=== PATIENT | female | born 1935 | race Caucasian/White ===

== ENCOUNTER 2016-07-27 13:47 | Observation (INO) | payer MEDICARE, MEDICAID ==
[2016-07-27] VITALS (10 sets, daily range): BP systolic 88–148; BP diastolic 53–77; PULSE 58–75; RESP 14–28; O2SAT 86–94
[~2016-07-27] VITALS: Ht 154.9 cm; Wt 53.1 kg
[2016-07-27] MEDS ORDERED: 0.9% Sodium Chloride 1,000 ML ONE (14:25)
--- NOTE | 2016-07-27 14:25 | ED.REPORT ---
HPI-General Illness Date of Service Jul 27, 2016 ED Provider: Bradford Rankin DO Pt s an 80 year old female with a history of COPD, HTN and hyperlipidemia who presents to the ED with complaints of weakness that started 4 days ago. Pt reports body aches, decreased appetite, cough, wheezing, dysuria, increased urgency, diarrhea, and shortness of breath. She denies any nausea, vomiting, chest pain, or any fevers. Pt reports smoking on a daily basis, but denies any history of CHF or stroke. She reports that she has an albuterol inhaler, prescribed for her by her PCP, which she used today without any alleviation of her symptoms. Nursing Notes Stated Complaint: SOB,COUGH,BODY ACHES,NECK PAIN,LETHARGIC Chief Complaint: General Complaint Nursing Notes Reviewed: Yes Allergies: Coded Allergies: celecoxib (Verified Allergy, Intermediate, "my blood startes boiling", 07/27) ibuprofen (Verified Allergy, Intermediate, "my blood starts boiling", ) Scheduled Atorvastatin (Lipitor) 20 Mg Tablet 20 MG PO HS Calcitriol (Rocaltrol) 0.25 Mcg Capsule 0.25 MCG PO DAILY Cholecalciferol (Vitamin D3) (Vitamin D3) 2,000 Unit Tablet 2,000 UNIT PO DAILY Furosemide (Furosemide) 40 Mg Tablet 40 MG PO BID Glucosamine (Glucosamine) 500 Mg Tablet 500 MG PO BID Metoprolol Tartrate (Metoprolol Tartrate) 25 Mg Tablet 25 MG PO BID Potassium Citrate ER (Potassium Citrate ER) 10 Meq Tablet 10 MEQ PO DAILY TAKE WITH FOOD Scheduled PRN Albuterol HFA (Proair HFA) 8.5 Gm Hfa.aer.ad 2 PUFFS INHALATION Q4H PRN PRN For Shortness of Breath Calcium Carbonate (Tums) 500 Mg Tab.chew 500 MG PO PRN PRN PRN ACID Fluticasone/Salmeterol (Advair Hfa 230-21 Mcg Inhaler) 12 Gm Hfa.aer.ad 2 PUFF IH BID PRN PRN For Shortness of Breath Polyvinyl Alcohol/Povidone/Pf (Refresh Classic Eye Drops) 1 Each Droperette 1 EACH OP prn PRN PRN dry eyes Tramadol (Tramadol) 50 Mg Tablet 50 MG PO BID PRN PRN For Pain General Time Seen by MD: 14:16 Chief Complaint Breathing problem, Multip medical complaints Hx Obtained From: Patient, Daughter Arrived By: Walk-in Sudden in Onset?: Yes Onset Occurred: 4 days ago Symptom Duration: Since onset Severity: Current: No pain currently Severity: Maximum: No pain Similar Sx Previous: Yes Past Medical History Past Medical History Reports: COPD, Hyperlipidemia, Hypertension Smoking History Current Every Day Smoker Ambulatory Status Independent Review of Systems Full Review of Systems Constitutional: Reports: Weakness - generalized, Denies: Chills, Fever, Malaise Respiratory: Reports: Non-productive cough, Shortness of breath, Wheezing Cardiovascular: Denies: Chest pain, Syncope GI: Reports: Diarrhea, Denies: Abdominal pain, Constipation, Nausea, Vomiting Female: Reports: Dysuria, Urinary frequency, Urinary urgency, Denies: Flank pain Musculoskeletal: Denies: Extremity pain, Neck pain Skin: Denies Diaphoresis Neurologic: Reports: Weakness, Denies: Change LOC, Dizziness, Headache, Syncope Complete sys rev & neg: except as marked. Physical Exam Vital Signs Vital Signs Date Time Temp Pulse Resp B/P Pulse Ox O2 Delivery O2 Flow Rate FiO2 07/27/16 15:48 73 28 148/74 92 07/27/16 14:54 58 14 94 Nasal Cannula 2 07/27/16 14:47 59 14 129/67 93 Nasal Cannula 2 07/27/16 14:23 75 18 119/60 94 Nasal Cannula 2 07/27/16 14:08 61 16 119/68 91 Room Air 07/27/16 13:53 36.2 64 20 88/53 90 Room Air Initial VS: Reviewed Head / Eyes: Atraumatic, Normocephalic, PERRL Neck: Supple, Non-tender, Full range of motion Cardiovascular: Regular rate & rhythm, Heart sounds normal, Intact distal pulses Abdomen / GI: Soft, Non-tender, No guarding, No rebound, No distention Skin: Warm, Dry, No cyanosis Neurologic: Alert, Oriented, Nonfocal Psychiatric: Mood/affect normal, Behavior normal, Normal thought content General/Constitutional: Awake, Alert, Cooperative Appearance / Presentation: Positive: Cachectic, Uncomfortable Hypotensive ENT: Atraumatic, Airway patent Mouth: Positive: Mucous membranes dry Respiratory / Chest: No respiratory distress Diffuse, coarse expiratory wheezes Ankle / Foot: Full range of motion, No deformity, Neurologic intact, Vascular intact 1/2 cm skin ulceration at the medial base of the right fifth toe Interpretation & Diagnostics Lab Results Interpretation Result Diagram: 07/27/16 1215 07/27/16 1215 Test 07/27/16 12:15 07/27/16 12:45 White Blood Count 6.3th/mm3 (3.8-10.1) Red Blood Count 4.34mil/mm3 (3.90-5.20) Hemoglobin 13.1g/dL (12.0-15.6) Hematocrit 40.2% (35.0-46.0) Mean Corpuscular Volume 92.6fL (81-100) Mean Corpuscular Hemoglobin 30.2pg (27.0-35.0) Mean Corpuscular Hemoglobin Concent 32.6% (32.0-37.0) Red Cell Distribution Width 14.2% (12.3-15.4) Platelet Count 175bil/L (150-400) Neutrophils (%) (Auto) 69.3% (40-74) Lymphocytes (%) (Auto) 16.1% (14-46) Monocytes (%) (Auto) 13.3% (4-12) Eosinophils (%) (Auto) 0.5% (0-5) Basophils (%) (Auto) 0.5% (0-3) Sodium Level 139mEq/L (134-144) Potassium Level 4.1mEq/L (3.5-5.2) Chloride Level 95mEq/L (97-108) Carbon Dioxide Level 29mmol/L (18-29) Blood Urea Nitrogen 62mg/dL (8-27) Creatinine 2.33mg/dL (0.57-1.00) Estimat Glomerular Filtration Rate 29mL/min (>59) Glucose Level 107mg/dL (60-99) Calcium Level 9.2mg/dL (8.5-10.1) Total Bilirubin 0.3mg/dL (0.0-1.2) Aspartate Amino Transf (AST/SGOT) 23U/L (0-50) Alanine Aminotransferase (ALT/SGPT) 14U/L (0-32) Alkaline Phosphatase 49U/L (25-165) Troponin T 0.021ug/L (0.0-0.011) Pro-B-Type Natriuretic Peptide 980.5pg/mL (0-738) Total Protein 7.2g/dL (6.4-8.4) Albumin 3.7g/dL (3.4-5.0) Lactic Acid Level 1.2mmol/L (0.4-2.0) ECG Interpretation ECG Interpretation: SR - [address] depression, lateral leads Time: 15:35 Interpreted by: ED physician X-Ray Chest Interpretation Chest Xray Interpretation: IMPRESSION: 1. New 1.7 cm left upper lung nodule, worrisome for bronchogenic neoplasm versus metastasis. Consider confirmation with chest CT. 2. Several nonacute right rib fractures now present. Dictated by: Johnson Cota M.D. on 07/27/2016 at 15:18 Interpretation / Wet Read by: Interpret - Radiologist Re-Eval/Medical Decision Med Decision/Clinical Course Hypotension and hypoxia associated with influenza A will plan to admit. she is made aware of the incidental finding of a lung mass. Source of Hx: Old records Time of Eval: 16:26 Re-Evaluation/Progress Note: Pt is rechecked and informed of her labs and imaging results and the need to admit her at this time. She understands and agrees, all questions are addressed. Consultation : Referral / Consult Name: Nish Sahni MD Consulted With: Hospitalist Call Returned at: 16:46 Sports Intern: Will see patient, Agrees with plan, Accepts admit Counseled Regarding: Diagnosis, Lab results, Need for admission Discharge & Departure Primary Impression: Acute respiratory failure with hypoxia Additional Impressions: Influenza A COPD (chronic obstructive pulmonary disease) COPD type: unspecified COPD Qualified Code: J44.9 - Chronic obstructive pulmonary disease, unspecified Disposition: ADMITTED TO HOSPITAL Discharge Condition All VS Reviewed: Yes Condition: Stable Referrals: Gael Jordan MD (PCP) Krista Attestation Portions of this note were transcribed by Brooke Arevalo. I, Dr. Rankin personally performed the history, physical exam and medical decision-making; I reviewed and confirmed the accuracy of the information in the transcribed note. Signed by: Krista Daniels, 07/27/2016 [id number] copies to: Gael Jordan MD, Timothy S DO Jul 27, 2016 14:25 APPLE AREVALO Jul 27, 2016 14:44
[2016-07-27 14:29] LABS: BASOPHILS % (AUTO) 0.5 % (0-3); EOSINOPHILS % (AUTO) 0.5 % (0-5); MONOCYTES % (AUTO) 13.3 % (4-12); Mean Corpuscular Hemoglobin 30.2 pg (27.0-35.0); Mean Corpuscular Volume 92.6 fL (81-100); NEUTROPHILS % (AUTO) 69.3 % (40-74); Platelet Count 175 bil/L (150-400)
[2016-07-27] MEDS ORDERED: Albuterol 2.5 mg/3 mL Inhalation Solution NEB ONE (14:40)
[2016-07-27] MEDS ORDERED: 0.9% Sodium Chloride 500 ML IV ONE (14:40)
[2016-07-27] MEDS ORDERED: Albuterol-Ipratropium 3 mL Inhalation Solution NEB ONE (14:40)
[2016-07-27 14:55] LABS: TROPONIN T 0.021 ug/L (0.0-0.011)
--- NOTE | 2016-07-27 15:20 | DRSVH ---
PROCEDURE: X-RAY CHEST ONE VIEW, PORTABLE ([id number]) INDICATIONS: 80 year-old female with cough and weakness. TECHNIQUE: One view of the chest was acquired. COMPARISON: [facility], , CHEST 2VW, 07/26/2011, 12:02. FINDINGS: Surgical changes and devices: None. Lungs and pleura: No pleural effusions or pneumothorax. No acute airspace opacities. 1.7 cm left up per lung nodule is now apparent. Mediastinum: Mediastinal contours appear normal. Heart size is normal. There is aortic atheroscler osis. Bones and chest wall: No suspicious bony lesions. Several nonacute right rib fractures appear new s el[place] 2011. Overlying soft tissues appear unremarkable. IMPRESSION: 1. New 1.7 cm left upper lung nodule, worrisome for bronchogenic neoplasm versus metastasis. Consider confirmation with chest CT. 2. Several nonacute right rib fractures now present. Dictated by: Johnson Cota M.D. on 07/27/2016 at 15:18 Approved by: Johnson Cota M.D. on 07/27/2016 at 15:18
[2016-07-27] MEDS ORDERED: POTA10TA19 PO (15:54)
[2016-07-27] MEDS ORDERED: GLUC100016 PO (15:54)
[2016-07-27] MEDS ORDERED: CALC500T9 PO (15:54)
[2016-07-27] MEDS ORDERED: ALBU8.5H2 INHALATION (15:54)
[2016-07-27] MEDS ORDERED: FURO40TA4 PO (15:54)
[2016-07-27] MEDS ORDERED: CALC0.257 PO (15:54)
[2016-07-27] MEDS ORDERED: ATOR20TA PO (15:54)
[2016-07-27] MEDS ORDERED: METO25TA6 PO (15:54)
[2016-07-27] MEDS ORDERED: POTA-17 PO (15:54)
[2016-07-27] MEDS ORDERED: TRAM50TA2 PO (15:54)
[2016-07-27] MEDS ORDERED: 0.9% Sodium Chloride 1,000 ML IV SCH (16:48)
[2016-07-27] MEDS ORDERED: Ondansetron 2 mg/mL 2 mL Inj IVPUSH PRN ×2 (16:50→17:00)
[2016-07-27] MEDS ORDERED: Alum-Mag Hydrox-Simeth 30 mL Suspension PO PRN ×2 (16:50→17:00)
[2016-07-27] MEDS ORDERED: CHOL200025 PO (16:51)
[2016-07-27] MEDS ORDERED: POLY1DRO OP (16:51)
[2016-07-27] MEDS ORDERED: GLUC500T12 PO (16:51)
[2016-07-27] MEDS ORDERED: FLUT12AE6 IH (16:51)
[2016-07-27] MEDS ORDERED: Polyethylene Glycol (PEG) 17 Gm Powder PO PRN (17:00)
[2016-07-27] MEDS ORDERED: Albuterol 2.5 mg/3 mL Inhalation Solution NEB PRN (18:15)
[2016-07-27] MEDS ORDERED: MethylprednisoLONE Sodium Succinate 40 mg/mL Inj IVPUSH ONE (18:15)
[2016-07-27] MEDS: 0.9% Sodium Chloride 1,000 ML IV SCH (18:19)
--- NOTE | 2016-07-27 18:30 | NUR ---
Transfer to [facility] Pt. transferred via gurney to [facility] at 1735 in stable condition. AOX3, Denies chest pain, N/V. Does have mild SOB. On 2 L O2, saturating well. Other vitals stable. present to assess pt. Family in the room. All belongings with pt.
--- NOTE | 2016-07-27 18:36 | PCM.HPMED ---
Subjective Date of Service Jul 27, 2016 Primary Provider: Admitting Physician: Nish Sahni MD Primary Care Physician: Mani Navarro MD Attending Physician: Nish Sahni MD Admit Status: From the Emergency Department, Admit to [place] Team Chief Complaint: Increased shortness of breath, malaise, increased cough History of Present Illness: Ms. Andrei Ladd is a pleasant 80 year old woman with history of COPD, current tobacco use, HTN, and dyslipidemia, that presented to [facility] with a 4 day history of general malaise, increased cough, increased sputum and congestion, chills, and weakness. She was found to be influenza A positive, and she was admitted for evaluation and treatment of COPD exacerbation likely secondary to influenza A and continued tobacco use. She states that approximately four days prior to admission, she began to feel weak, developed a cough with intermittent sputum production, and sensed chills. She also noted a brief, one episode of diarrhea, which did not contain gross blood, and she states this has resolved. She has been tolerating oral intake well, but admits to decreased appetite. She does not wear oxygen at home. Her PCP is Dr. Navarro in [place], with last OV within recent weeks, follow up for rheumatoid arthritis associated pains. Patient admits to not adhering to Advair dosing. She has never seen a tie knitter helper. Admits to continued tobacco use, with < 0.5ppd currently. Denies any chest pain, abdominal pain, nausea, vomiting, hematochezia, fevers. Patient has not been previously seen at our facility. Seen at just immediatley prior to admission for work up of SOB, and was recommended to pursue emergent care for symptoms. In the ED, patient was afebrile with T36.2, P64, R20, BP 88/53, 90%RA; WBC 6.3, Cr 2.33, LA 1.2, troponin 0.021, BNP 980. CXR revealed new 1.7cm JULIET nodule suggestive of neoplasm or metastases, in addition to several nonacute right sided rib fractures. She was provided 75mg Tamiflu x1, 1L bolus NS, and nebulizer treatments. She was transferred to [facility] in stable condition. Review of Systems: Complete ROS obtained; pertinent positives and negatives as noted in HPI Allergies Coded Allergies: celecoxib (Verified Allergy, Intermediate, "my blood startes boiling", 07/27) ibuprofen (Verified Allergy, Intermediate, "my blood starts boiling", ) Home Medications From ED documentation; patient provided medications to be verified by [facility]: Atorvastatin (Lipitor) 20 Mg Tablet 20 MG PO HS Calcitriol (Rocaltrol) 0.25 Mcg Capsule 0.25 MCG PO DAILY Furosemide (Furosemide) 40 Mg Tablet 60 MG PO DAILY Glucosamine Sulfate 2Kcl (Glucosamine) 1,000 Mg Tablet 0 PO BID Metoprolol Tartrate (Metoprolol Tartrate) 25 Mg Tablet 25 MG PO BID Potassium Citrate ER (Potassium Citrate ER) 10 Meq Tablet 10 MEQ PO DAILY TAKE WITH FOOD Potassium Citrate ER (Urocit-K) 10 Meq Tablet 10 MEQ PO DAILY Scheduled PRN Albuterol HFA (Proair HFA) 8.5 Gm Hfa.aer.ad 2 PUFFS INHALATION Q4H PRN PRN For Shortness of Breath Calcium Carbonate (Tums) 500 Mg Tab.chew 500 MG PO PRN PRN PRN ACID Tramadol (Tramadol) 50 Mg Tablet 50 MG PO BID PRN PRN For Pain PMH COPD Hyperlipidemia Hypertension Rheumatoid arthritis Hypothyroidism Surgical History Tonsillectomy 193 Cataract extraction Colonoscopy 2010 Family History Mother- Cancer, unspecified type Siblings- Diabetes Extended family- Diabetes Social History Occupation: Unemployed Hx Alcohol Use: No Hx Substance Use: No Hx Tobacco Use: Yes Smoking Status: Current Every Day Smoker, Light Tobacco Smoker Living Arrangement: Alone Exam Vital Signs Vital Sign - Last Date Time Temp Pulse Resp B/P Pulse Ox O2 Delivery O2 Flow Rate FiO2 07/27/16 15:48 73 28 148/74 92 07/27/16 14:54 Nasal Cannula 2 07/27/16 13:53 36.2 Exam General: AAOx3; pleasant and cooperative; no acute distress HENT: Atraumatic, sclera anicteric. mucus membranes moist Neck: No JVD noted at time of examination; soft; trachea midline Cardiac: Regular rate and rhythm at time of examination; no murmurs appreciated Respiratory: Bilateral wheeze from bases to mid-nails; no use accessory muscles Abdomen: Soft, nontender, nondistended Extremities: No edema Skin: Warm and dry Neuro: CNII-XII grossly intact; speech normal; facial expressions symmetric Psych: Appropriate mood, affect, and responses to questioning Lab and Diagnostics Result Diagram: 07/27/16 1215 07/27/16 1215 Assessment & Plan Ms. Andrei Ladd is a pleasant 80 year old woman with history of COPD, current tobacco use, HTN, and dyslipidemia, that presented to [facility] with a 4 day history of general malaise, increased cough, increased sputum and congestion, chills, and weakness. She was found to be influenza A positive, and she was admitted for evaluation and treatment of COPD exacerbation likely secondary to influenza A and continued tobacco use. - Hospital day one Influenza A, acute, present on admission. Ongoing - On admit: Rapid screen POSITIVE for influenza A - In ED, Tamiflu x1 - Tamiflu 75mg BID x9 additional doses; start date 07/27 pm - Supportive treatments Acute hypoxemic respiratory failure, present on admission. Under therapy - Likely secondary to influenza A infection, COPD exacerbation, or both - 88-92% O2 - Incentive spirometry - Wean O2 as tolerated - Consider arrange home O2 order as DC approaches Elevated troponin of undetermined significance, likely acute, present on admission. Under investigation - On admit: 0.021 - Likely secondary to demand ischemia, and/or CKD - Trend - EKG prn chest pain COPD, acute exacerbation, present on admission. Ongoing - Likely secondary to influenza A, poorly managed COPD - Not on chronic oxygen - DuoNebs QIDWA - AccuNebs q2h prn SOB - Solu-Medrol 60mg IV x1 - Prednisone 40mg x5d, start date 07/28 Possible acute on CKD III, present on admission. Under investigation - On admit: 2.33 - [facility] records 2012: 1.44 - School Age Program Associate: Dr. Rodriguez - Trend creatinine - Furosemide 40mg BID held: to be re-evaluated in am 07/28 HTN, essential, chronic. Presumed stable - Continue metoprolol XL 25mg daily Dyslipidemia, chronic. Presumed stable - Continue statin Tobacco use disorder, chronic. Stable - Current use: Smoked tobacco < 0.5ppd - History of tobacco use 'xmany years' - Nicotine patch 7mg daily Abnormal CXR findings, chronicity unknown, present on admission. Presumed stable - CXR 07/27: New 1.7 cm left upper lung nodule, worrisome for bronchogenic neoplasm versus metastasis - Family is aware of finding, and agree to follow up outpatient Rheumatoid arthritis, chronic. Presumed stable - Aqua pad for heat therapy - Continue tramadol - PRN: Fever/pain/antiemetic/bowel - DVT: Hep q8 - Diet: Heart healthy - GI: H2B - CODE: DNR/DNI - PCP: norman Navarro Patient status: Due to severity of presenting, likely course of care, and risk of adverse events, LOS anticipated < 2 midnights. Patient admitted under observation status. Needs at this time include PT to evaluate stability from recent weakness, and possible resources by INSURANCE UNDERWRITING ASSISTANT for patient and family, such as home health options and coping strategies for patient's deteriorating health. Patient lived at home alone, independently, still driving. Pain Evaluation: Adequate Pain Control GI Prophylaxis: H2 anuja VTE Prophylaxis: Sub-Q Heparin (Unfractionated) Resuscitation Status: DNR/DNI:Do Not Resuscitate/Intubate Attending Statement The patient was seen and examined together with Dr. Swenson on 07/27/2016 and I agree with the history, exam and plan as outlined in the note above. Natasha Swenson DO Jul 27, 2016 17:02 Nish Sahni MD Jul 27, 2016 20:38
[2016-07-27] MEDS ORDERED: Albuterol-Ipratropium 3 mL Inhalation Solution ONE (19:29)
[2016-07-27] MEDS: Albuterol-Ipratropium 3 mL Inhalation Solution NEB SCH (19:51)
[2016-07-27] MEDS: Heparin 5,000 Unit/mL Inj SUBQ SCH (23:47)
[2016-07-28] VITALS (13 sets, daily range): BP systolic 108–175; BP diastolic 75–91; PULSE 61–82; RESP 18–20; O2SAT 89–97
[2016-07-28] MEDS: 0.9% Sodium Chloride 1,000 ML IV SCH ×3 (02:58→21:40)
--- NOTE | 2016-07-28 03:23 | NUR ---
respiratory patient with coarse breath sounds. 97% on 3 liters nc titrated to 2 liters nc dry, tight cough. hob at 30 degrees. denies dyspnea at this time. droplet precautions in place. care ongoing
[2016-07-28] MEDS: Albuterol-Ipratropium 3 mL Inhalation Solution NEB SCH ×4 (06:15→19:54)
[2016-07-28 06:30] LABS: APPEARANCE,URINE HAZY (CLEAR,HAZY); COLOR,URINE STRAW (YELLOW); OCCULT BLOOD,URINE NEGATIVE (NEGATIVE); UROBILINOGEN,URINE NORMAL (NORMAL)
[2016-07-28 06:39] LABS: BASOPHILS % (AUTO) 0.3 % (0-3); EOSINOPHILS % (AUTO) 0 % (0-5); MONOCYTES % (AUTO) 1.6 % (4-12); Mean Corpuscular Hemoglobin 30.5 pg (27.0-35.0); Mean Corpuscular Volume 93.6 fL (81-100); NEUTROPHILS % (AUTO) 84.7 % (40-74); Platelet Count 180 bil/L (150-400)
[2016-07-28 07:22] LABS: Phosphorus 3.9 mg/dL (2.5-4.9)
[2016-07-28 07:40] LABS: TROPONIN T < 0.010 ug/L (0.0-0.011)
[2016-07-28] MEDS ORDERED: Potassium Citrate ER 10 mEq ER24 Tablet PO SCH (08:30)
[2016-07-28] MEDS: predniSONE 20 mg Tablet PO SCH (09:29)
[2016-07-28] MEDS: Heparin 5,000 Unit/mL Inj SUBQ SCH ×2 (10:05→16:34)
--- NOTE | 2016-07-28 12:18 | NUR ---
PSVT Per hospital laboratory technician - patient had a 6 sec. run of PSVT with HR going up to 140s before going down to sinus.
--- NOTE | 2016-07-28 14:18 | PCM.PNMED ---
Subjective Date of Service Jul 28, 2016 Subjective Overnight: No acute events; reported some SOB Today: Appeared slightly confused, unable to answer questions with direct answer , but was able to correctly identify date, and location, but had to be redirected throughout. Denied chest pain, n/v, fever, chills. Reports some SOB, but improved. Tolerating po well. Exam Vital Signs Vital Sign - Last Date Time Temp Pulse Resp B/P Pulse Ox O2 Delivery O2 Flow Rate FiO2 07/28/16 11:44 64 20 90 Nasal Cannula 1.50 07/28/16 09:46 36.3 156/79 Intake and Output 07/27/16 07/27/16 07/28/16 Cumulative From/Thru 15:00 23:00 07:00 07/27/16 13:53 - 07/28/16 06:47 Intake Total 1000 ml 0 ml 683 ml 1683 ml Output Total 200 ml 200 ml Balance 1000 ml -200 ml 683 ml 1483 ml Intake Oral 150 ml 150 ml IV Total 1000 ml 0 ml 533 ml 1533 ml Output Urine Total 200 ml 200 ml # Voids 2 2 # Bowel Movements 1 1 Exam General: AAOx3; pleasant and cooperative; no acute distress HENT: Atraumatic, sclera anicteric. mucus membranes moist Neck: No JVD noted at time of examination; soft; trachea midline Cardiac: Regular rate and rhythm at time of examination; no murmurs appreciated Respiratory: Bilateral wheeze from bases to mid-nails; no use accessory muscles Abdomen: Soft, nontender, nondistended Extremities: No edema Skin: Warm and dry Neuro: CNII-XII grossly intact; speech normal; facial expressions symmetric Psych: Appropriate mood, affect, and responses to questioning, but required some re-directing; was able to correctly identify date and location without prompts Lab and Diagnostics Result Diagram: 07/28/16 0610 07/28/16 0610 Assessment & Plan Ms. Andrei Ladd is a pleasant 80 year old woman with history of COPD, current tobacco use, HTN, and dyslipidemia, that presented to [facility] with a 4 day history of general malaise, increased cough, increased sputum and congestion, chills, and weakness. She was found to be influenza A positive, and she was admitted for evaluation and treatment of COPD exacerbation likely secondary to influenza A and continued tobacco use. - Hospital day two Influenza A, acute, present on admission. Ongoing - On admit: Rapid screen POSITIVE for influenza A - In ED, Tamiflu x1 - Tamiflu 75mg BID x9 additional doses; start date 07/27 pm - Supportive treatments Acute hypoxemic respiratory failure, present on admission. Under therapy - Likely secondary to influenza A infection, COPD exacerbation, or both - 88-92% O2 - Incentive spirometry - Wean O2 as tolerated - Consider arrange home O2 order as DC approaches; ordered for 07/29 Elevated troponin of undetermined significance, likely acute, present on admission. Under investigation - On admit: 0.021 - Likely secondary to demand ischemia, and/or CKD - Trended: negative x2 - EKG prn chest pain COPD, acute exacerbation, present on admission. Ongoing - Likely secondary to influenza A, poorly managed COPD - Not on chronic oxygen - DuoNebs QIDWA - AccuNebs q2h prn SOB - Solu-Medrol 60mg IV x1 - Prednisone 40mg x5d, start date 07/28 - Recommend outpatient follow up for COPD, and recommend medication compliance with Advair Acute on CKD III, present on admission. Resolving - On admit: 2.33 - [facility] Tree Feller Operator: Dr. Rodriguez - Trended creatinine: normalized - Home lasix dosing to resume HTN, essential, chronic. Presumed stable - Continue metoprolol XL 25mg daily Dyslipidemia, chronic. Presumed stable - Continue statin Tobacco use disorder, chronic. Stable - Current use: Smoked tobacco < 0.5ppd - History of tobacco use 'xmany years' - Nicotine patch 7mg daily Abnormal CXR findings, chronicity unknown, present on admission. Presumed stable - CXR 07/27: New 1.7 cm left upper lung nodule, worrisome for bronchogenic neoplasm versus metastasis - Family is aware of finding, and agree to follow up outpatient Rheumatoid arthritis, chronic. Presumed stable - Aqua pad for heat therapy - Continue tramadol - PRN: Fever/pain/antiemetic/bowel - DVT: Hep q8 - Diet: Heart healthy - GI: H2B - CODE: DNR/DNI - PCP: norman Navarro Dispo: Likely DC 07/29 pending medical stability. Current needs include PT eval to assess for DC safety, home O2 eval, and possible resources by OYSTER PLANTER for patient and family, such as home health options and coping strategies for patient's deteriorating health. Patient lived at home alone, independently, still driving. Dtr distressed with mother's condition. Pt states will DC with family friend to care for her. Pain Evaluation: Adequate Pain Control GI Prophylaxis: H2 anuja VTE Prophylaxis: Sub-Q Heparin (Unfractionated) Resuscitation Status: DNR/DNI:Do Not Resuscitate/Intubate Attending Statement The patient was seen and examined together with Dr. Swenson on 07/28/2016 and I agree with the history, exam and plan as outlined in the note above. Natasha Swenson DO Jul 28, 2016 14:17 Nish Sahni MD Jul 29, 2016 09:51
--- NOTE | 2016-07-28 16:25 | NUR ---
Social Work-initial assessment: Data:See initial assessment. Pt is a 80 y/o female who was admitted for influenza per H&P. Pt's insurance is [facility] an and [facility] and PCP is Mani Navarro. EMR Reviewed. SW met with pt at bedside to discuss discharge planning, SW role explained. pt resides at home alone in a single level home where she remains independent with ADLs. Pt does not use any DME, but has fww if needed. Pt drives and has no HH Or SNF history. SW discussed DPOA/ advanced directive, SW encouraged pt to bring this into the hospital.MD to order PT evaluation. SW attempted to reach daughter, no answer. SW to follow up tomorrow with daughter to further discuss. Assessment:Pt who is independent at baseline. Plan:Pt to likely discharge home when medically stable via POV. SW to follow up post PT evaluation to determine needs. SW to reach out daughter again tomorrow. SW will continue to follow. JHON Worley Addendum: 07/28/16 at 1629 by SONJA DELUNA Amended: Links added.
--- NOTE | 2016-07-28 17:21 | NUR ---
Wound Care Wound evaluation received, pt seen at bedside today. Pt reports she has had ulceration on her right 5th toe of and on for the last few months, pt really unsure. Pt is a smoker and has a 1 cm in diameter ulceration at the medial aspect of the 5th toe in the web space, there is no drainage noted nor is there a dressing in place. I am unable to palpate pulses at the right or left foot but the feet are warm and the capillary refill is slow. Pt reports she is borderline diabetic, she does have sensation at her feet but these are not monofilament tested. Wound was dressed with a piece of Aquacel and tape. Given pt's history of smoking and indeterminate existence of this wound an xray may be prudent and perhaps an arterial ultrasound to assess vascular status of the leg. Will also have pt follow up in the wound center on discharge.
[2016-07-29] VITALS (12 sets, daily range): BP systolic 149–185; BP diastolic 68–86; PULSE 65–90; RESP 16–20; O2SAT 86–93
[2016-07-29] MEDS: Heparin 5,000 Unit/mL Inj SUBQ SCH ×3 (00:59→17:23)
--- NOTE | 2016-07-29 05:02 | NUR ---
Uneventful night No new complaint overnight, sat 88-92 on 2 L; expecting to d/c today with home O2. Did not get very good sleep, hourly rounding ongoing.
[2016-07-29] MEDS ORDERED: Labetalol 5 mg/mL 4 mL Inj IVPUSH ONE (05:50)
[2016-07-29] MEDS: Albuterol-Ipratropium 3 mL Inhalation Solution NEB SCH ×4 (06:17→20:44)
[2016-07-29 06:34] LABS: BASOPHILS % (AUTO) 0.4 % (0-3); EOSINOPHILS % (AUTO) 0 % (0-5); MONOCYTES % (AUTO) 6.9 % (4-12); Mean Corpuscular Hemoglobin 30.2 pg (27.0-35.0); Mean Corpuscular Volume 91.5 fL (81-100); NEUTROPHILS % (AUTO) 80.4 % (40-74); Platelet Count 196 bil/L (150-400)
[2016-07-29 06:50] LABS: Magnesium 1.6 mg/dL (1.6-2.6); Phosphorus 1.8 mg/dL (2.5-4.9)
[2016-07-29] MEDS: 0.9% Sodium Chloride 1,000 ML IV SCH (07:52)
[2016-07-29] MEDS: predniSONE 20 mg Tablet PO SCH (08:02)
[2016-07-29] MEDS: Potassium Chloride 20 mEq SR Tablet PO SCH (09:51)
--- NOTE | 2016-07-29 10:23 | NUR ---
Patient does not qualify for home oxygen at this time. RA at rest 92%. 200 ft walk with PT lowest Sp02 89%.
--- NOTE | 2016-07-29 10:39 | NUR ---
Evaluation completed. Please go to "Notes" then click on "Assessments and Notes" (bottom left corner of screen). Then select appropriate discipline tab on top of screen.
--- NOTE | 2016-07-29 11:57 | NUR ---
BP at last vital check, pt had a high BP. MD made aware. new orders placed. Waiting on Rx. Pt denies pain. is up in chair for lunch. Will continue to monitor.
--- NOTE | 2016-07-29 12:59 | PCM.PNMED ---
Subjective Date of Service Jul 29, 2016 Subjective Overnight: No acute events Today: States she feels well. Doing well on room air without conversational dyspnea. Tolerating po well. Denies SOB, CP, nausea/vomiting, fever, chills. Exam Vital Signs Vital Sign - Last Date Time Temp Pulse Resp B/P Pulse Ox O2 Delivery O2 Flow Rate FiO2 07/29/16 10:50 36.7 66 16 178/80 92 Room Air 07/29/16 06:18 2.00 Intake and Output 07/28/16 07/28/16 07/29/16 Cumulative From/Thru 15:00 23:00 07:00 07/27/16 13:53 - 07/29/16 05:51 Intake Total 1620 ml 2231 ml 5534 ml Output Total 200 ml Balance 1620 ml 2231 ml 5334 ml Intake Oral 820 ml 970 ml IV Total 2231 ml 3764 ml TPN/PPN 800 ml 800 ml Output Urine Total 200 ml # Voids 1 3 # Bowel Movements 0 1 Exam General: AAOx3; pleasant and cooperative; no acute distress HENT: Atraumatic, sclera anicteric. mucus membranes moist Neck: No JVD noted at time of examination; soft; trachea midline Cardiac: Regular rate and rhythm at time of examination; no murmurs appreciated Respiratory: Bilateral wheeze from bases to mid-nails; no use accessory muscles Abdomen: Soft, nontender, nondistended Extremities: No edema Skin: Warm and dry Neuro: CNII-XII grossly intact; speech normal; facial expressions symmetric Psych: Appropriate mood, affect, and responses to questioning Lab and Diagnostics Result Diagram: 07/29/16 0607 07/29/16 0607 Assessment & Plan Ms. Andrei Ladd is a pleasant 80 year old woman with history of COPD, current tobacco use, HTN, and dyslipidemia, that presented to [facility] with a 4 day history of general malaise, increased cough, increased sputum and congestion, chills, and weakness. She was found to be influenza A positive, and she was admitted for evaluation and treatment of COPD exacerbation likely secondary to influenza A and continued tobacco use. - Hospital day three Influenza A, acute, present on admission. Ongoing - On admit: Rapid screen POSITIVE for influenza A - In ED, Tamiflu x1 - Tamiflu 75mg BID x9 additional doses; start date 07/27 pm - Supportive treatments Acute hypoxemic respiratory failure, present on admission. Resolved - Likely secondary to influenza A infection, COPD exacerbation, or both - May have undx chronic respiratory failure secondary to COPD - 88-92% O2 - Incentive spirometry - Wean O2 as tolerated - Consider arrange home O2 order as DC approaches; ordered for 07/29 Elevated troponin of undetermined significance, likely acute, present on admission. Under investigation - On admit: 0.021 - Likely secondary to demand ischemia, and/or CKD - Trended: negative x2 - EKG prn chest pain COPD, acute exacerbation, present on admission. Ongoing - Likely secondary to influenza A, poorly managed COPD - Not on chronic oxygen - DuoNebs QIDWA - AccuNebs q2h prn SOB - Solu-Medrol 60mg IV x1 - Prednisone 40mg x5d, start date 07/28 - Recommend outpatient follow up for COPD, and recommend medication compliance with Advair Acute on CKD III, present on admission. Resolving - On admit: 2.33 - [facility] records 2012: 1.44 - Drilling Machine Runner: Dr. Rodriguez - Trended creatinine: normalized - Home lasix dosing to resume HTN, essential, chronic. Presumed stable - Continue metoprolol XL 25mg daily - Added amlodipine 2.5mg daily for improved control; adjust if needed - Overnight monitoring Dyslipidemia, chronic. Presumed stable - Continue statin Tobacco use disorder, chronic. Stable - Current use: Smoked tobacco < 0.5ppd - History of tobacco use 'xmany years' - Nicotine patch 7mg daily Abnormal CXR findings, chronicity unknown, present on admission. Presumed stable - CXR 07/27: New 1.7 cm left upper lung nodule, worrisome for bronchogenic neoplasm versus metastasis - Family is aware of finding, and agree to follow up outpatient Rheumatoid arthritis, chronic. Presumed stable - Aqua pad for heat therapy - Continue tramadol Right fifth toe ulceration, chronic, present on admission. Stable - Wound care consult placed - XR + art doppler recommended - Outpatient wound care follow up recommended - PRN: Fever/pain/antiemetic/bowel - DVT: Hep q8 - Diet: Heart healthy - GI: H2B - CODE: DNR/DNI - PCP: norman Navarro [place] Dispo: Likely DC 07/30 pending medical stability. Current needs include PT eval to assess for DC safety, home O2 eval, and possible resources by STREET OPENINGS INSPECTOR for patient and family, such as home health options and coping strategies for patient's deteriorating health. Patient lived at home alone, independently, still driving. Dtr distressed with mother's condition. Pt states will DC with family friend to care for her. Pain Evaluation: Adequate Pain Control GI Prophylaxis: H2 anuja VTE Prophylaxis: Sub-Q Heparin (Unfractionated) VTE Mechanical Devices: Intermittant Pneumatic CD Resuscitation Status: DNR/DNI:Do Not Resuscitate/Intubate Attending Statement The patient was seen and examined together with Dr. Swenson on 07/29/2015 and I agree with the history, exam and plan as outlined in the note above. Natasha Swenson DO Jul 29, 2016 12:59 Nish Sahni MD Jul 30, 2016 10:15
--- NOTE | 2016-07-29 13:31 | NUR ---
Social Work: Readiness for d/c Data: Pt is on day 2 of hospitalization. EMR reviewed, MD garcia note states that pt will likely d/c tomorrow. PT has yet to see pt. Pt will needs to be assessed for home O2 needs on day of d/c. AIR BRAKE TESTER called pt's daughter, no answer, AIR BRAKE TESTER left a message requesting a call back. AIR BRAKE TESTER will continue to follow. Assessment: Pt who is independent at baseline. Plan: Pt will d/c home via POV when medically stable, AIR BRAKE TESTER will await pt's daughters phone call back. PT has yet to see pt. Pt will needs to be assessed for home O2 needs on day of d/c. AIR BRAKE TESTER will continue to follow. JHON Jacobs
--- NOTE | 2016-07-29 15:44 | DRSVH ---
PROCEDURE: X-RAY TOESS, TWO VIEWS INDICATIONS: 80 year-old female with fifth toe ulceration. TECHNIQUE: AP foot and 2 views of the right fifth toe(s) acquired. COMPARISON: None. FINDINGS: Bones: No fractures or dislocations. No bony erosions or destruction. There is mild first metatarso phalangeal joint degeneration. No suspicious bony lesions. Soft tissues: No radiopaque soft tissue foreign bodies. No soft tissue gas. IMPRESSION: No radiographic evidence for advanced osteomyelitis of the fifth toe region. Pre- and pos tcontrast right forefoot MRI may be considered for more sensitive evaluation of early bony infection. Dictated by: Johnson Cota M.D. on 07/29/2016 at 15:42 Approved by: Johnson Cota M.D. on 07/29/2016 at 15:42
--- NOTE | 2016-07-29 17:03 | NUR ---
On RA at rest Sp02 87% will qualify for home oxygen.
--- NOTE | 2016-07-29 17:48 | DRSVH ---
PROCEDURE: US DUPLEX DOPPLER UNILATERAL LEG ARTERIES, RIGHT INDICATIONS: toe ulceration; poor pulses TECHNIQUE: Color and pulse Doppler interrogation was performed of the right lower extremity arterial system, wit h image documentation. COMPARISON: None. FINDINGS: Common femoral artery: 151 cm/sec, with biphasic flow. Deep femoral artery: 99 cm/sec, with biphasic flow. Proximal superficial femoral artery: 119 cm/sec, with biphasic flow. Mid superficial femoral artery: 102 cm/sec, with biphasic flow. Distal superficial femoral artery: 97 cm/sec, with biphasic flow. Popliteal artery: 56 cm/sec, with biphasic flow. Posterior tibial artery: 44 cm/sec, with biphasic flow. Anterior tibial artery/dorsalis pedis: 32 cm/sec, with biphasic flow. Kasper-scale imaging description: Mild atheromatous ossifications are present throughout the right lowe r extremity arterial system. IMPRESSION: 1. No significant stenosis or occlusion of the right lower extremity arteries to explain toe ulcerati on and poor peripheral pulses. Dictated by: Jayna Wolff M.D. on 07/29/2016 at 17:46 Approved by: Jayna Wolff M.D. on 07/29/2016 at 17:46
[2016-07-30] VITALS (7 sets, daily range): BP systolic 165–171; BP diastolic 73–85; PULSE 64–81; RESP 18–20; O2SAT 90–94
[2016-07-30] MEDS: Heparin 5,000 Unit/mL Inj SUBQ SCH ×2 (00:29→08:11)
--- NOTE | 2016-07-30 05:17 | NUR ---
Sats Pt sating 90%-94% on 2L O2. denies SOB or any discomfort. slept most of the night. SBA to the bathroom; bed alarm on for safety.
[2016-07-30 06:44] LABS: BASOPHILS % (AUTO) 0.4 % (0-3); EOSINOPHILS % (AUTO) 0 % (0-5); MONOCYTES % (AUTO) 7.8 % (4-12); Mean Corpuscular Hemoglobin 30.5 pg (27.0-35.0); Mean Corpuscular Volume 90.6 fL (81-100); NEUTROPHILS % (AUTO) 73.2 % (40-74); Platelet Count 217 bil/L (150-400)
[2016-07-30 07:20] LABS: Magnesium 1.6 mg/dL (1.6-2.6); Phosphorus 1.8 mg/dL (2.5-4.9)
[2016-07-30] MEDS: Albuterol-Ipratropium 3 mL Inhalation Solution NEB SCH ×2 (07:24→11:34)
[2016-07-30] MEDS: predniSONE 20 mg Tablet PO SCH (08:11)
[2016-07-30] MEDS: Potassium Chloride 20 mEq SR Tablet PO SCH (08:21)
[2016-07-30] MEDS ORDERED: OSEL30CA PO (08:40)
[2016-07-30] MEDS ORDERED: PRED-508 PO (08:40)
[2016-07-30] MEDS ORDERED: ALBU8.5H2 INHALATION (08:40)
[2016-07-30] MEDS ORDERED: AMLO5TAB2 PO (08:40)
--- NOTE | 2016-07-30 08:43 | PCM.DIMED ---
Discharge Instructions Date of Service Jul 30, 2016 Dates of Hospitalization Jul 27, 2016 at 16:43 Discharge Diagnosis Discharge Diagnosis Influenza A, acute, present on admission. Ongoing with improvement Acute hypoxemic respiratory failure, present on admission. Improved Elevated troponin of undetermined significance, likely acute, present on admission. Under investigation COPD, acute exacerbation, present on admission. Resolved Acute on CKD III, present on admission. Resolved HTN, essential, chronic. Presumed stable Dyslipidemia, chronic. Presumed stable Tobacco use disorder, chronic. Stable Abnormal CXR findings, chronicity unknown, present on admission. Presumed stable Rheumatoid arthritis, chronic. Presumed stable Right fifth toe ulceration, chronic, present on admission. Stable Medication Instructions NEW MEDICATIONS: - Amlodipine 5mg daily - Take 5mg daily - Record BP prior to taking - If BP < 120 systolic, hold dose - Oseltamivir (Tamiflu) 30mg daily - This is the flu medication - Take 30mg twice daily - Take your next dose tonight - Complete the remaining course - Prednisone 40mg daily - Take 40mg each morning for the next two days - Your next dose is 07/31/2016 - Albuterol (Proair HFA) inhaler - An Rx for an inhaler has been provided, as you do not have one - Tale two deep puffs as needed for shortness of breath - Continue your home Advair as directed - Oxygen therapy - You have qualified for home oxygen - Utilize as needed - Your goal oxygen range is 88-92% - Hard copies of Rx provided at discharge - No other changes were made to your medications that were available at time of reconciliation. Continue medications as directed by their prescribers. Diet Heart Healthy Activity No restrictions Call your provider Fever or Chills, Shortness of breath, Bleeding, Chest pain, Excessive diarrhea, Weakness (unilateral) Patient Instructions - Stay well hydrated with water. Aim for 1-2L daily - Keep a record of your blood pressure readings; take daily readings with your pulse count and take log to your primary care follow up visit - Use oxygen to maintain saturations 88-92%. - Do not smoke while wearing oxygen! - Please practice oxygen safety Follow-up plan - Follow up with your primary care in 7-10 days. Discuss - Oxygen therapy - Your medications, new and old - COPD management - Your abnormal chest x-ray findings - Smoking cessation - Follow up with Dr. Rodriguez as scheduled Follow-up Provider: Mani Navarro MD Follow-up with PCP in: 1 week Provider: Gordo Rodirguez MD Follow-up in: 4 weeks (or as recommended) Natasha Swenson DO Jul 30, 2016 08:37
--- NOTE | 2016-07-30 11:50 | NUR ---
Social Work: Discharge Data: Pt is on day 3 of hospitalization. EMR reviewed, d/c orders are in. PIPE ROLLER spoke with RT who states pt is set up for home O2 with [employer]. PT recommends no further PT needs at d/c.No further d/c planning needs at this time. PIPE ROLLER will continue to follow. Assessment: Pt who is independent at baseline. Plan: Pt will d/c home via POV today with [employer] home O2. No further d/c planning needs at this time. PIPE ROLLER will continue to follow. JHON Jacobs
--- NOTE | 2016-07-30 13:42 | NUR ---
discharge paperwork reviewed, no questions at this time. pt denies pain/distress. belongings are bagged and sent with pt via w/c to private car
--- NOTE | 2016-07-30 19:04 | PCM.DC.MED ---
Discharge Summary Date of Service Jul 30, 2016 Dates of Hospitalization Date of Hospital Admission Jul 27, 2016 at 16:43 Date of Discharge: Jul 30, 2016 Providers: Admitting Physician: Nish Sahni MD Primary Care Physician: Mani Navarro MD Attending Physician: Nish Sahni MD Diagnosis at Time of Discharge Diagnosis at Time of Discharge Influenza A, acute, present on admission. Ongoing with improvement Acute hypoxemic respiratory failure, present on admission. Improved Elevated troponin of undetermined significance, likely acute, present on admission. Stable COPD, acute exacerbation, present on admission. Resolved Acute on CKD III, present on admission. Resolved HTN, essential, chronic. Presumed stable Dyslipidemia, chronic. Presumed stable Tobacco use disorder, chronic. Stable Abnormal CXR findings, chronicity unknown, present on admission. Presumed stable Rheumatoid arthritis, chronic. Presumed stable Right fifth toe ulceration, chronic, present on admission. Stable Consultations Wound care Procedures XRay, CTs & MRIs PROCEDURE: X-RAY CHEST ONE VIEW, PORTABLE ([id number]) IMPRESSION: 1. New 1.7 cm left upper lung nodule, worrisome for bronchogenic neoplasm versus metastasis. Consider confirmation with chest CT. 2. Several nonacute right rib fractures now present. Dictated by: Johnson Cota M.D. on 07/27/2016 at 15:18 ------- PROCEDURE: X-RAY TOESS, TWO VIEWS IMPRESSION: No radiographic evidence for advanced osteomyelitis of the fifth toe region. Pre- and postcontrast right forefoot MRI may be considered for more sensitive evaluation of early bony infection. Dictated by: Johnson Cota M.D. on 07/29/2016 at 15:42 ------- PROCEDURE: US DUPLEX DOPPLER UNILATERAL LEG ARTERIES, RIGHT IMPRESSION: 1. No significant stenosis or occlusion of the right lower extremity arteries to explain toe ulceration and poor peripheral pulses. Dictated by: Jayna Wolff M.D. on 07/29/2016 at 17:46 ------- Brief History History obtained from admission note, dated 07/27/2016, composed by Dr. Natasha Strauss: Ms. Andrei Ladd is a pleasant 80 year old woman with history of COPD, current tobacco use, HTN, and dyslipidemia, that presented to [facility] with a 4 day history of general malaise, increased cough, increased sputum and congestion, chills, and weakness. She was found to be influenza A positive, and she was admitted for evaluation and treatment of COPD exacerbation likely secondary to influenza A and continued tobacco use. She states that approximately four days prior to admission, she began to feel weak, developed a cough with intermittent sputum production, and sensed chills. She also noted a brief, one episode of diarrhea, which did not contain gross blood, and she states this has resolved. She has been tolerating oral intake well, but admits to decreased appetite. She does not wear oxygen at home. Her PCP is Dr. Navarro in [place], with last OV within recent weeks, follow up for rheumatoid arthritis associated pains. Patient admits to not adhering to Advair dosing. She has never seen a cross enterprise integrator. Admits to continued tobacco use, with < 0.5ppd currently. Denies any chest pain, abdominal pain, nausea, vomiting, hematochezia, fevers. Patient has not been previously seen at our facility. Seen at just immediatley prior to admission for work up of SOB, and was recommended to pursue emergent care for symptoms. In the ED, patient was afebrile with T36.2, P64, R20, BP 88/53, 90%RA; WBC 6.3, Cr 2.33, LA 1.2, troponin 0.021, BNP 980. CXR revealed new 1.7cm JULIET nodule suggestive of neoplasm or metastases, in addition to several nonacute right sided rib fractures. She was provided 75mg Tamiflu x1, 1L bolus NS, and nebulizer treatments. She was transferred to [facility] in stable condition. Hospital Course Ms. Andrei Ladd is a pleasant 80 year old woman with history of COPD, current tobacco use, HTN, and dyslipidemia, that presented to [facility] with a 4 day history of general malaise, increased cough, increased sputum and congestion, chills, and weakness. She was found to be influenza A positive, and she was admitted for evaluation and treatment of COPD exacerbation likely secondary to influenza A and continued tobacco use. She received Tamiflu, steroids, and qualified for home oxygen therapy.Blood pressure was elevated, new medication provided at discharge. Discharged home in stable condition. - Hospital day total: 4 Influenza A, acute, present on admission. Ongoing - On admit: Rapid screen POSITIVE for influenza A - In ED, Tamiflu x1 - Tamiflu 75mg BID x9 additional doses; start date 07/27 pm - Rx Tamiflu at discharge to complete course Acute hypoxemic respiratory failure, present on admission. Resolved - Likely secondary to influenza A infection, COPD exacerbation, or both - May have undx chronic respiratory failure secondary to COPD - Incentive spirometry to continue; device provided at discharge - Approved for home oxygen - Albuterol inhaler Rx provided Elevated troponin of undetermined significance, likely acute, present on admission. Resolved - On admit: 0.021 - Likely secondary to demand ischemia, and/or CKD - Trended: negative x2 COPD, acute exacerbation, present on admission. Resolved - Likely secondary to influenza A, poorly managed COPD - Not on chronic oxygen on admission - Prednisone 40mg x5d, start date 07/28; Rx to complete course provided at discharge - Recommend outpatient follow up for COPD, and recommend medication compliance with Advair Acute on CKD III, present on admission. Resolved - On admit: 2.33 [facility] - Front Desk Receptionist: Dr. Rodriguez - Trended creatinine: normalized - Home lasix dosing to resume HTN, essential, chronic. Presumed stable - Continue metoprolol XL 25mg daily - Added amlodipine 5mg daily for improved control - Amlodipine 5mg po daily Rx provided at [place] Dyslipidemia, chronic. Presumed stable - Continued statin Tobacco use disorder, chronic. Stable - Current use: Smoked tobacco < 0.5ppd - History of tobacco use 'xmany years' - Nicotine patch 7mg daily provided while in-house Abnormal CXR findings, chronicity unknown, present on admission. Presumed stable - CXR 07/27: New 1.7 cm left upper lung nodule, worrisome for bronchogenic neoplasm versus metastasis - Family is aware of finding, and agree to follow up outpatient Rheumatoid arthritis, chronic. Presumed stable - Aqua pad for heat therapy - Continued tramadol Right fifth toe ulceration, chronic, present on admission. Stable - Wound care consult placed: recommend outpatient follow up - Art doppler: No significant stenosis or occlusion of the right lower extremity arteries to explain toe ulceration and poor peripheral pulses. - XR right toe: No radiographic evidence for advanced osteomyelitis of the fifth toe region Exam Vital Signs (Last) Date Time Temp Pulse Resp B/P Pulse Ox O2 Delivery O2 Flow Rate FiO2 07/30/16 11:35 68 18 92 Nasal Cannula 2.00 07/30/16 09:15 36.6 171/73 Exam General: AAOx3; pleasant and cooperative; no acute distress HENT: Atraumatic, sclera anicteric. mucus membranes moist Neck: No JVD noted at time of examination; soft; trachea midline Cardiac: Regular rate and rhythm at time of examination; no murmurs appreciated Respiratory: Faint bilateral wheeze from bases to mid-nails; no use accessory muscles Abdomen: Soft, nontender, nondistended Extremities: No edema Skin: Warm and dry Neuro: CNII-XII grossly intact; speech normal; facial expressions symmetric Psych: Appropriate mood, affect, and responses to questioning Test 07/27/16 12:15 07/27/16 12:45 07/28/16 05:45 07/28/16 06:10 Total Bilirubin 0.3mg/dL (0.0-1.2) Aspartate Amino Transf (AST/SGOT) 23U/L (0-50) Alanine Aminotransferase (ALT/SGPT) 14U/L (0-32) Alkaline Phosphatase 49U/L (25-165) Pro-B-Type Natriuretic Peptide 980.5pg/mL (0-738) Total Protein 7.2g/dL (6.4-8.4) Albumin 3.7g/dL (3.4-5.0) Lactic Acid Level 1.2mmol/L (0.4-2.0) Urine Color Straw (YELLOW) Urine Appearance Hazy (CLEAR,HAZY) Urine pH 6.0 (5.0-8.0) Urine Specific Lizella 1.015 (1.003-1.035) Urine Protein 30mg/dL (NEG,TRACE) Urine Glucose (UA) Negativemg/dL (NEGATIVE) Urine Ketones Negativemg/dL (NEGATIVE) Urine Occult Blood Negative (NEGATIVE) Urine Nitrite Negative (NEGATIVE) Urine Bilirubin Negative (NEGATIVE) Urine Urobilinogen Normalmg/dL (NORMAL) Urine Leukocyte Esterase Negative (NEGATIVE) Urine RBC 0-2/hpf (0-2) Urine WBC 0-5/hpf (0-5) Urine Epithelial Cells Few/hpf (NONE-MOD) Urine Crystals Amorphous urates (NONE Urine Bacteria None/hpf (NONE-FEW) Urine Hyaline Casts None/lpf (NONE) Urine Granular Casts None seen (NONE SEEN) Urine Waxy Casts None seen (NONE SEEN) Urine Red Blood Cell Casts None seen (NONE SEEN) Urine White Blood Cell Casts None seen (NONE SEEN) Urine Mucus None seen (None Seen) Urine Trichomonas None seen (NONE SEEN) Urine Yeast None (NONE SEEN) Urine Culture Reflexed Not indicated Troponin T < 0.010ug/L (0.0-0.011) Test 07/29/16 06:07 07/30/16 06:15 Procalcitonin 0.11ng/mL (See Comment) White Blood Count 10.9th/mm3 (3.8-10.1) Red Blood Count 4.16mil/mm3 (3.90-5.20) Hemoglobin 12.7g/dL (12.0-15.6) Hematocrit 37.7% (35.0-46.0) Mean Corpuscular Volume 90.6fL (81-100) Mean Corpuscular Hemoglobin 30.5pg (27.0-35.0) Mean Corpuscular Hemoglobin Concent 33.7% (32.0-37.0) Red Cell Distribution Width 14.1% (12.3-15.4) Platelet Count 217bil/L (150-400) Neutrophils (%) (Auto) 73.2% (40-74) Lymphocytes (%) (Auto) 16.8% (14-46) Monocytes (%) (Auto) 7.8% (4-12) Eosinophils (%) (Auto) 0% (0-5) Basophils (%) (Auto) 0.4% (0-3) Sodium Level 143mEq/L (134-144) Potassium Level 3.6mEq/L (3.5-5.2) Chloride Level 102mEq/L (97-108) Carbon Dioxide Level 25mmol/L (18-29) Blood Urea Nitrogen 27mg/dL (8-27) Creatinine 1.45mg/dL (0.57-1.00) Estimat Glomerular Filtration Rate 50mL/min (>59) Glucose Level 96mg/dL (60-99) Calcium Level 8.4mg/dL (8.5-10.1) Phosphorus Level 1.8mg/dL (2.5-4.9) Magnesium Level 1.6mg/dL (1.6-2.6) Discharge Medications Discharge Medications Amlodipine (Amlodipine) 5 Mg Tablet 5 MG PO DAILY Prescribed by: NATASHA STRAUSS DO Atorvastatin (Lipitor) 20 Mg Tablet 20 MG PO HS (Reported) Calcitriol (Rocaltrol) 0.25 Mcg Capsule 0.25 MCG PO DAILY (Reported) Cholecalciferol (Vitamin D3) (Vitamin D3) 2,000 Unit Tablet 2,000 UNIT PO DAILY (Reported) Furosemide (Furosemide) 40 Mg Tablet 40 MG PO BID (Reported) Glucosamine (Glucosamine) 500 Mg Tablet 500 MG PO BID (Reported) Metoprolol Tartrate (Metoprolol Tartrate) 25 Mg Tablet 25 MG PO BID (Reported) Oseltamivir Phosphate (Tamiflu) 30 Mg Capsule 30 MG PO BID Prescribed by: NATASHA STRAUSS DO Potassium Citrate ER (Potassium Citrate ER) 10 Meq Tablet 10 MEQ PO DAILY ( Reported) TAKE WITH FOOD Prednisone (Deltasone) 20 Mg Tablet 40 MG PO DAILY Prescribed by: NATASHA STRAUSS DO As needed Albuterol HFA (Proair HFA) 8.5 Gm Hfa.aer.ad 2 PUFFS INHALATION Q4H PRN PRN For Shortness of Breath Prescribed by: NATASHA STRAUSS DO Calcium Carbonate (Tums) 500 Mg Tab.chew 500 MG PO PRN PRN PRN ACID (Reported) Fluticasone/Salmeterol (Advair Hfa 230-21 Mcg Inhaler) 12 Gm Hfa.aer.ad 2 PUFF IH BID PRN PRN For Shortness of Breath (Reported) Polyvinyl Alcohol/Povidone/Pf (Refresh Classic Eye Drops) 1 Each Droperette 1 EACH OP prn PRN PRN dry eyes (Reported) Tramadol (Tramadol) 50 Mg Tablet 50 MG PO BID PRN PRN For Pain (Reported) Additional med instructions NEW MEDICATIONS: - Amlodipine 5mg daily - Take 5mg daily - Record BP prior to taking - If BP < 120 systolic, hold dose - Oseltamivir (Tamiflu) 30mg daily - This is the flu medication - Take 30mg twice daily - Take your next dose tonight - Complete the remaining course - Prednisone 40mg daily - Take 40mg each morning for the next two days - Your next dose is 07/31/2016 - Albuterol (Proair HFA) inhaler - An Rx for an inhaler has been provided, as you do not have one - Tale two deep puffs as needed for shortness of breath - Continue your home Advair as directed - Oxygen therapy - You have qualified for home oxygen - Utilize as needed - Your goal oxygen range is 88-92% - Hard copies of Rx provided at discharge - No other changes were made to your medications that were available at time of reconciliation. Continue medications as directed by their prescribers. Followup Plan Follow-up plan - Follow up with your primary care in 7-10 days. Discuss - Oxygen therapy - Your medications, new and old - COPD management - Your abnormal chest x-ray findings - Smoking cessation - Follow up with Dr. Rodriguez as scheduled Discharge Diet: Heart Healthy Discharge Activity: No restrictions Patient Instructions - Stay well hydrated with water. Aim for 1-2L daily - Keep a record of your blood pressure readings; take daily readings with your pulse count and take log to your primary care follow up visit - Use oxygen to maintain saturations 88-92%. - Do not smoke while wearing oxygen! - Please practice oxygen safety Follow-up Provider: Mani Navarro MD Follow-up with PCP in: 1 week Provider: Gordo Rodriguez MD Follow-up in: 4 weeks (or as recommended) Time spent 35 minutes Attending Statement The patient was seen and examined together with Dr. Strauss on 07/30/2016 and I agree with the history, exam and plan as outlined in the note above. Natasha Strauss DO Jul 30, 2016 19:04 Nish Sahni MD Jul 31, 2016 10:21
[2016-11-02] MEDS ORDERED: HYDR-4003 PO (14:04)
[2016-11-02] MEDS ORDERED: GABA-502 PO (14:04)
[2016-11-09] MEDS ORDERED: OMEP20CA11 PO (08:22)
== END 2016-07-30 13:39 | disposition home or self-care (01) ==
LOC: SED 13:47 → MPC 16:43
PROVIDERS: ADMIT Family Medicine; ATTEND Family Medicine
DX: J96.01 Acute respiratory failure with hypoxia (principal); J44.1 Chronic obstructive pulmonary disease with (acute) exacerbation; J10.1 Influenza due to other identified influenza virus with other respiratory manifestations; I12.9 Hypertensive chronic kidney disease with stage 1 through stage 4 chronic kidney disease, or unspecified chronic kidney disease; N18.3 Chronic kidney disease, stage 3 (moderate); N17.9 Acute kidney failure, unspecified; L97.519 Non-pressure chronic ulcer of other part of right foot with unspecified severity; E78.5 Hyperlipidemia, unspecified; F17.210 Nicotine dependence, cigarettes, uncomplicated; E03.9 Hypothyroidism, unspecified; M06.9 Rheumatoid arthritis, unspecified; R79.89 Other specified abnormal findings of blood chemistry; R91.1 Solitary pulmonary nodule; Z66 Do not resuscitate
CPT/HCPCS: 36415; 71010; 73660; 80048; 80053; 81000; 82308; 83605; 83735; 83880; 84100; 84484; 85025; 87804; 93005; 93926; 94640; 94664; 96361; 96374; 96375; 97161; 97602; 99285; G0378; G0463; J1644; J2920; J7030; J7613; J7620

== ENCOUNTER 2016-09-24 09:18 | Day surgery (SDC) | payer MEDICAID, MEDICARE ==
[~2016-09-24] VITALS: Ht 154.9 cm; Wt 58.0 kg
[~2016-09-24 09:18] MED LIST: ALBU8.5H2 INHALATION; ATOR20TA PO; CALC0.257 PO; CALC500T9 PO; CHOL200025 PO; CeFAZolin Inj 2 GM in IV Premix 1 EACH IV ONE; FLUT12AE6 IH; FURO40TA4 PO; GLUC500T12 PO; Lactated Ringer's 1,000 ML IV SCH; METO25TA6 PO; POLY1DRO OP; POTA10TA19 PO; TRAM50TA2 PO
[2016-09-24] MEDS ORDERED: fentaNYL-PF 50 mCg/mL 2 mL Inj ONE (09:19)
[2016-09-24] MEDS ORDERED: Propofol 10,000 mCg/mL 20 mL Inj ONE (09:19)
[2016-09-24 10:14] VITALS: BP 144/66; PULSE 54; RESP 14; O2SAT 100
[2016-09-24] MEDS ORDERED: Lactated Ringer's 1,000 ML IV ONE (10:21)
[2016-09-24] MEDS ORDERED: CeFAZolin Inj 2 gm / 50mL D5W IV ONE (10:42)
[2016-09-24] MEDS ORDERED: Lactated Ringer's 1,000 ML IV SCH (11:37)
[2016-09-24] MEDS ORDERED: Lactated Ringer's 500 ML IV PRN (11:37)
[2016-09-24] MEDS ORDERED: Ondansetron 2 mg/mL 2 mL Inj IVPUSH PRN (11:40)
[2016-09-24] MEDS ORDERED: Labetalol 5 mg/mL 4 mL Inj IV PRN (11:40)
[2016-09-24] MEDS ORDERED: hydrALAZINE 20 mg/mL Inj IVPUSH PRN (11:40)
[2016-09-24] MEDS ORDERED: Dexamethasone 4 mg/mL Inj IVPUSH PRN (11:40)
[2016-09-24] MEDS ORDERED: fentaNYL-PF 50 mCg/mL 2 mL Inj IVPUSH PRN (11:40)
[2016-09-24] MEDS ORDERED: Phenylephrine 10,000 mCg/mL Inj IVPUSH PRN (11:40)
[2016-09-24] MEDS ORDERED: Atropine 0.4 mg/mL Inj IVPUSH PRN (11:40)
[2016-09-24] MEDS ORDERED: EPHEDrine Sulfate 50 mg/mL Inj IVPUSH PRN (11:40)
[2016-09-24] MEDS ORDERED: MetoCLOpramide 5 mg/mL 2 mL Inj IVPUSH PRN (11:40)
--- NOTE | 2016-09-24 11:43 | PCM.HPANE ---
Patient Data Surgeon Admitting Provider: Attending Provider:Faisal Zarate MD Primary Care Physician:Mani Navarro MD Other Provider:[facility] Anesthesia Reason for Visit Lung Cancer Ht/WT & BMI Height (Feet): 5 Height (Inches): 1 Weight (Kilograms): 58 Body Mass Index 24.00 Allergies Coded Allergies: celecoxib (Verified Allergy, Intermediate, "my blood startes boiling", 07/27) ibuprofen (Verified Allergy, Intermediate, "my blood starts boiling", ) Past Anesthesia History Anesthesia History: Denies:: Anesthesia Reactions Diabetes History Hx Diabetes?: No MRSA MRSA: No Medications Hypertension Medication: Yes Home Meds Incl Beta Larry: Yes Date Beta Larry Taken: Sep 24, 2016 Time Beta Larry Taken: 0700 Active Scripts Albuterol HFA (Proair HFA)8.5 Gm Hfa.aer.ad2 Puffs INHALATION Q4H PRN For Shortness of Breath #1 INHALER Prov:Natasha Swenson DO 07/30/16 Reported Medications Cholecalciferol (Vitamin D3) (Vitamin D3)2,000 Unit Tablet2,000 Unit PO DAILY 07/27/16 Polyvinyl Alcohol/Povidone/Pf (Refresh Classic Eye Drops)1 Each Droperette1 Each OP prn PRN dry eyes 07/27/16 Glucosamine 500 Mg [id number] Mg PO BID 07/27/16 Fluticasone/Salmeterol (Advair Hfa 230-21 Mcg Inhaler)12 Gm Hfa.aer.ad2 Puff IH BID PRN For Shortness of Breath #1 INHALER Ref 0 07/27/16 Calcium Carbonate (Tums)500 Mg Tab.tjkk997 Mg PO PRN PRN ACID 30 Days 07/27/16 Metoprolol Tartrate 25 Mg Giwozx23 Mg PO BID 30 Days Ref 0 07/27/16 Furosemide 40 Mg Tgtfit27 Mg PO BID 07/27/16 Atorvastatin (Lipitor)20 Mg Bbvard06 Mg PO HS Ref 0 07/27/16 Calcitriol (Rocaltrol)0.25 Mcg Capsule0.25 Mcg PO DAILY 07/27/16 Potassium Citrate ER 10 Meq Ohdnwn18 Meq PO DAILY Ref 0 TAKE WITH FOOD 07/27/16 Tramadol 50 Mg Konkru03 Mg PO BID PRN For Pain Ref 0 07/27/16 Discontinued Scripts Prednisone (Deltasone)20 Mg Cvypfg09 Mg PO DAILY #2 TABLET Prov:Natasha Swenson DO 07/30/16 Amlodipine 5 Mg Tablet5 Mg PO DAILY #30 TABLET Prov:Natasha Swenson DO 07/30/16 Oseltamivir Phosphate (Tamiflu)30 Mg Ghtwrdk20 Mg PO BID #4 CAPSULE Prov:Natasha Swenson DO 07/30/16 History History of ENT Problems?: No HEENT History: Positive for:: Cataracts (Removed) Dysphagia (coughs with eating. R salivary gland removed.) Hearing Problem Denies:: Sinus Problem Denture Type: Full- Upper Full- Lower Hx of Heart Problems?: Yes Cardiovascular History: Positive for:: Edema Hypertension Denies:: Cardiac Surgery Chest Pain Congestive Heart Failure Heart Murmur Irregular Heartbeat Pacemaker Thrombophlebitis Hx of Respiratory Problem?: Yes Respiratory History: Positive for:: COPD Dyspnea Oxygen Administration (O2 dependent - 2L) Use of Inhalers / NEBS Denies:: Asthma Chest Surgery Emphysema Hemoptysis Pneumonia Tuberculosis Use of C-PAP Machine Other Resp Pertinent History: New dx lung cancer- inpt here 07/27-07/30/2016. Has not seen accounts receivable accountant Hx Neurologic Problems?: Yes Neurological History: Positive for:: Dizziness Denies:: CVA Headaches Multiple Sclerosis Parkinson's Disease Seizures Other Neurological Pertinent: remote hx of craniotomy/ cobalt tx for pituitary tumor Hx of GI Problems?: Yes Gastrointestinal History: Positive for:: Diverticulitis Gastroesphageal Reflux Denies:: Gastrointestinal Bleeding Heartburn Hepatitis Hiatal Hernia Rectal Bleeding Other GI Pertinent History: hx of partial colectomy for polyps Hx of Problems?: Yes Genitourinary History: Denies:: HX of Hemodialysis (CKD) Kidney Stones Urinary Tract Infection HX of Peritoneal Dialysis: No Female Hx: Denies:: Currently Endometriosis Pelvic Inflammatory Problems with Breasts? Skin History: Denies:: History Skin Disorders? Pressure Ulcers Hx Musculoskeletal Problems?: Yes Musculoskeletal History: Positive for:: Back Injury (Chronic) Osteoarthritis Denies:: Fibromyalgia Joint Replacement Musculoskeletal Trauma Hx of Psycho/Social Problems?: No Hx Surgeries?: Yes (appy, craniotomy for pituitary tumor, partial colectomy) Hx Any Other Health Problems?: Yes Other History: Positive for:: Hospitalization (inpt here jul 2016- acute resp failure) Denies:: Cancer Thyroid Disease History Blood Transfusions: Positive for:: Accept Blood Products? Denies:: Blood Transfuse Reaction Blood Transfusions Hx Diabetes: No Hx Alcohol Use: YesHx Substance Use: No Smoking Status: Former Smoker Have You Smoked inLast 12 mo: Yes (ppd- quit 2 mos ago) Stop/Bang S-Snoring: Do You Snore Loudly: No T-Tired: feel tired, fatigued: Yes O-Obsered: Observed not breath: No P-Blood Pressure: treated: Yes B- Body Mass Index > 35 kg/m2: No A- Age over 50: Yes N- Neck Large Circumference: No G- Gender Male: No HARVEY Total Score: 3 Risk Assessment Category Category 1A: Patient has history of documented sleep apnea, and HAS NOT received any narcotic, sedative or anesthesia administration during this stay. Category 1B: Patient has history of documented sleep apnea, and HAS received any narcotic , sedative or anesthesia administration during this stay Category 2: Patient has SUSPECTED Obstructive Sleep Apnea, and HAS received any narcotic , sedative or anesthesia administration during this stay. Category 3: Patient has SUSPECTED Obstructive Sleep Apnea and HAS NOT received narcotic, sedative or anesthesia administration during this stay. Category 4: Outpatient in Procedural Areas with known sleep apnea or who screen positive for High Risk via the STOP/BANG questionnaire. Exam Exam Vital Signs Vital Signs Date Time Temp Pulse Resp B/P Pulse Ox O2 Delivery O2 Flow Rate FiO2 09/24/16 10:14 36.1 54 14 144/66 100 Nasal Cannula 2 General Appearance: Alert, Oriented X3, Cooperative, No Acute Distress HEENT/AIRWAY: MP 2, Neck Movement (FROM), Mouth Opening (3 FBMO) Lungs: Diminished Heart: Regular Rate/Rhythm Meds/Labs/Diagnostics Admission Meds Current Medications Lactated Ringer's (Lr) 1,000 ml @ ud STK-MED ONCE IV Last administered on t 10:21; Start 09/24/16 at 10:21; Stop 09/24/16 at 10:22; Status DC Plan Impression Patient chart reviewed, patient interviewed and anesthestic plan with risks, benefits, and alternatives discussed, and informed consent obtained. NPO Status: Confirmed before mn ASA Physical Status: ASA3 Severe Disease (Cancer) Anesthetic Plan: GA (possible GA), MAC Bene/Risks/Altern/Consents: Yes HP Complete Prior to Induction: Yes Mtz,Reji MD Sep 24, 2016 10:30
[2016-09-24] MEDS ORDERED: Lidocaine PF 1% 30 mL Inj INFILTRATE ONE (11:52)
[2016-09-24] MEDS ORDERED: Bupivacaine-MPF 0.25%/EPI 30 mL Inj INJ ONE (11:53)
[2016-09-24] MEDS ORDERED: HepLOK Flush 100 unit/mL 5 mL Inj IVFLUSH ONE (11:55)
[2016-09-24] MEDS ORDERED: HYDROcodone-APAP 5-325 mg Tablet PO PRN (12:20)
[2016-09-24 12:30] VITALS: BP 105/62; PULSE 59; RESP 16; O2SAT 100
--- NOTE | 2016-09-24 12:37 | OP ---
[address] [address] OPERATIVE REPORT PATIENT: KESHA UP : 1935 MR#: [id number] ADMIT: 09/24/2016 JOB ID: [id number] DATE OF SURGERY: 09/24/2016 ANESTHESIA: MAC with local. PREOPERATIVE DIAGNOSIS(ES): Lung cancer. POSTOPERATIVE DIAGNOSIS(ES): Lung cancer. OPERATIVE PROCEDURE: Insertion of left subclavian vein Port-A-Cath using fluoroscopy with interpretation. SURGEON: Faisal Zarate MD STUDENT AMBASSADOR: Jalen Bañuelos PA-C (the mailing machine assistant was required for the safe and timely completion of the case). COMPLICATIONS: None. ESTIMATED BLOOD LOSS: Minimal. CONDITION: Satisfactory. SPECIMEN: None. FINDINGS: A low-profile Port-A-Cath was inserted into the left subclavian vein without complication. INDICATIONS AND SIGNIFICANT HISTORY: The patient is an 80-year-old female who was recently found to have a nodule in the lung on a chest x-ray. Subsequent workup demonstrated lung cancer and she is scheduled to begin chemotherapy in the near future. OPERATIVE TECHNIQUE: The patient was taken to the operating room and placed in the supine position. Light sedation was administered and perioperative antibiotics were given. The neck and chest were prepped and draped in the standard surgical fashion. A procedural pause was performed. The left subclavian vein was accessed with a finder needle. It was accessed on the 1st try, but I was unable to get the wire to flow. It took a couple more tries prior to getting the wire to flow. Fluoroscopy confirmed that I was in the vein, as the wire was seen coursing through the heart, down into the inferior vena cava. Local anesthetic was injected and a subcutaneous pocket created in the left anterior chest. A low-profile port was secured in place with three 2-0 Prolene sutures. The catheter was tunneled up to the wire exit point and then inserted into the vein under fluoroscopic visualization using the Seldinger technique. Good final position was confirmed. The port aspirated and flushed nicely. This was locked with heparin. The skin was then closed with 3-0 Vicryl deep dermals followed by a running 4-0 Monocryl. Dermabond was applied. The entire procedure was well tolerated, without complication.
[2016-09-24 13:04] VITALS: BP 139/68; PULSE 53; O2SAT 93
--- NOTE | 2016-09-24 13:31 | PCM.ANEP2 ---
Post Anesthesia Evaluation ASA/CMS Post Anesthesia VS in Patient's Normal Range?: Yes Resp Stable; Airway Patent?: Yes CV Function & Hydration Stable: Yes Mental Status Recovered?: Yes Pain control Satisfactory?: Yes N/V Control Satisfactory?: Yes Hill Mtz MD Sep 24, 2016 13:31
--- NOTE | 2016-09-24 13:31 | PCM.ANEP1 ---
Post Anesthesia Phase 1 PACU Phase 1 Assessment Vital Signs Vital Signs Date Time Temp Pulse Resp B/P Pulse Ox O2 Delivery O2 Flow Rate FiO2 09/24/16 13:04 53 139/68 93 Nasal Cannula 4 09/24/16 12:30 36.0 59 16 105/62 100 Simple Mask 8 09/24/16 10:14 36.1 54 14 144/66 100 Nasal Cannula 2 Anesthetic Administered: MAC Level of Alertness: Awake, talking PONCE's with Equal Strength: Yes Pain: No Nausea or Vomiting: No Oxygen Delivery: Simple Mask Lungs: Diminished Dermatome Level: Full Sensation Hill Mtz MD Sep 24, 2016 13:31
--- NOTE | 2016-09-24 14:41 | DRSVH ---
PROCEDURE: X-RAY CHEST ONE VIEW, PORTABLE ([id number]) INDICATIONS: port TECHNIQUE: One view of the chest was acquired. COMPARISON: [facility], CR, XR CHEST 1VW (PORTABLE), 07/27/2016, 14:58. FINDINGS: Surgical changes and devices: Left subclavian chest port present projected over the mid superior vena cava. Lungs and pleura: Left upper lobe lung mass redemonstrated. No pneumothorax. Mediastinum: Mediastinal contours appear normal. Heart size is normal. Bones and chest wall: No suspicious bony lesions. Overlying soft tissues appear unremarkable. IMPRESSION: Placement of left chest port. Dictated by: Joao BANDA Interpreted: Paulina De La Rosa MD on 09/24/2016 at 14:37 Transcribed by: CHAYA on 09/24/2016 at 14:40 Approved by: Paulina De La Rosa MD, PhD on 09/24/2016 at 16:59
--- NOTE | 2016-09-24 17:18 | DRSVH ---
PROCEDURE: X-RAY SUGICAL FLUORO-VENOUS ACCESS INDICATIONS: LUNG CANCER COMPARISON: None. FINDINGS: Placement of left subclavian chest port. IMPRESSION: Placement of left subclavian chest port with tip projected over the mid to lower SVC. Dictated by: Joao BANDA Interpreted: Paulina De La Rosa MD on 09/24/2016 at 17:05 Transcribed by: CHAYA on 09/24/2016 at 17:05 Approved by: Paulina De La Rosa MD, PhD on 09/24/2016 at 17:07
[2016-11-02] MEDS ORDERED: HYDR-4003 PO (14:04)
[2016-11-02] MEDS ORDERED: GABA-502 PO (14:04)
[2016-11-09] MEDS ORDERED: OMEP20CA11 PO (08:22)
== END 2016-09-24 23:59 | disposition home or self-care (01) ==
LOC: SAS 09:18
PROVIDERS: ATTEND General Practice
PROC: 05H633Z Insertion of Infusion Device into Left Subclavian Vein, Percutaneous Approach (ICD-10-PCS; 2016-09-24)
PROC: B5171ZA Fluoroscopy of Left Subclavian Vein using Low Osmolar Contrast, Guidance (ICD-10-PCS; 2016-09-24)
PROC: 0JH60XZ Insertion of Tunneled Vascular Access Device into Chest Subcutaneous Tissue and Fascia, Open Approach (ICD-10-PCS; principal; 2016-09-24 11:30)
DX: C34.12 Malignant neoplasm of upper lobe, left bronchus or lung (principal); Z87.891 Personal history of nicotine dependence; J44.9 Chronic obstructive pulmonary disease, unspecified; M06.9 Rheumatoid arthritis, unspecified; E03.9 Hypothyroidism, unspecified; I12.9 Hypertensive chronic kidney disease with stage 1 through stage 4 chronic kidney disease, or unspecified chronic kidney disease; N18.3 Chronic kidney disease, stage 3 (moderate)
CPT/HCPCS: 36561; 71010; 77001; C1788; J0690; J1642; J3010; J7120